=== PATIENT | female | born 1990 | race Caucasian/White ===

== ENCOUNTER 2017-03-05 14:36 | Inpatient (IN) | payer OTHER ==
[~2017-03-05] VITALS: Ht 152.4 cm; Wt 43.6 kg
[~2017-03-05 14:36] MED LIST: IBUP40TA PO; IBUP600T26 PO; NORCOTAB PO; [UNRECOGNIZED DRUG - CODE] PO
[2017-03-05] MEDS ORDERED: SERT-155 PO (14:43)
[2017-03-05] MEDS ORDERED: BUPR50TA PO (14:43)
[2017-03-05 15:14] LABS: MEAN CORPUSCULAR HEMOGLOBIN 27.9 pg (27.0-33.0); MEAN CORPUSCULAR HGB CONC 32.9 g/dl (32.0-36.5); MEAN CORPUSCULAR VOLUME 84.8 fl (80.0-96.0); RED CELL DISTRIBUTION WIDTH 13.8 % (11.5-14.5); WHITE BLOOD COUNT 5.9 10^3/uL (4.0-10.0)
[2017-03-05 15:29] LABS: CONTROL LINE HCG INT CTR LINE PRESENT
[2017-03-05 15:32] LABS: METHADONE URINE NEGATIVE (NEGATIVE)
[2017-03-05 15:43] LABS: ALBUMIN 4.3 GM/DL (3.2-5.2); ALBUMIN/GLOBULIN RATIO 1.19 (1.00-1.93); ALKALINE PHOSPHATASE 65 U/L (45-117); ALT/SGPT 20 U/L (12-78); ANION GAP 7 MEQ/L (8-16); AST/SGOT 13 U/L (15-37); BILIRUBIN,DIRECT 0.1 MG/DL (0.0-0.2); BILIRUBIN,TOTAL 0.4 MG/DL (0.2-1.0); BLOOD UREA NITROGEN 9 MG/DL (7-18); CARBON DIOXIDE LEVEL 28 MEQ/L (21-32); CHLORIDE LEVEL 103 MEQ/L (98-107); CREATININE FOR GFR 0.92 MG/DL (0.55-1.02); GLOMERULAR FILTRATION RATE > 60.0 (>60); GLUCOSE, FASTING 85 MG/DL (70-105); POTASSIUM SERUM 3.7 MEQ/L (3.5-5.1); SODIUM LEVEL 138 MEQ/L (136-145); TOTAL PROTEIN 7.9 GM/DL (6.4-8.2)
[2017-03-05] MEDS ORDERED: buPROPion 100 MG TAB PO ONE (20:45)
[2017-03-05] MEDS ORDERED: SERTRALINE HCL 50 MG TAB PO ONE (20:45)
[2017-03-05] MEDS ORDERED: SERT50TA PO (20:55)
[2017-03-05] MEDS ORDERED: BUPR10TASR PO (20:55)
[2017-03-05] MEDS ORDERED: ACETAMINOPHEN TAB 650MG DOSE (2X325MG) PO PRN (21:00)
[2017-03-05] MEDS ORDERED: MAALOX 30 ML SUSP *UDC PO PRN (21:00)
[2017-03-05] MEDS ORDERED: traZODone 50 MG TAB PO PRN (21:00)
[2017-03-05] MEDS: buPROPion (WELLBUTRIN SR) 100 MG SR TAB PO SCH (21:00)
[2017-03-05] MEDS ORDERED: MOM 30ML SUSPENSION UDC PO PRN (21:00)
[2017-03-05] MEDS: SERTRALINE HCL 50 MG TAB PO SCH (21:00)
[2017-03-05] MEDS ORDERED: buPROPion 100 MG TAB PO SCH (21:00)
[2017-03-05 22:09] VITALS: BP 119/83
[2017-03-06 06:37] VITALS: BP 113/57
[2017-03-06] MEDS ORDERED: buPROPion 100 MG TAB PO SCH (09:00)
[2017-03-06] MEDS ORDERED: MUPIROCIN 2% OINT 22 GM TUBE TOP PRN (09:00)
--- NOTE | 2017-03-06 09:03 | HPEPDOC ---
[facility] Medical History & Physical Date of Admission Mar 05, 2017 History and Physical PCP: Dr Hanson ATTENDING: Dr. Kaiser Mendoza HPI: 26yoF admitted to [facility] for unspecified depressive disorder, being medically examined today. No acute medical complaints today. Denies any fevers, chills, weakness, fatigue, REARDON, CP, SOB, cough, palpitations, abdominal pain, N/V /D or changes in bowel or bladder habits. PMHx: Anxiety Depression Bipolar disorder ADHD History of ovarian cyst PSHX: Breast augmentation SOCHX: Resides in: [facility] Marital Status: Single Kids: 1 Employment: Unemployed Tobacco use: Denies ETOH: 2 times per month for drinks Illicit Drugs: Denies IV Drug Use: Denies Tattoos done unprofessionally: 1 FAMHX: Mother: Alive, MS Father: Alive, history of substance use, alcohol use Siblings: 2 sisters, one brother Alive, well Children: Alive, well Unexpected deaths due to medical reasons: None. ROS: As noted in HPI, otherwise 11pt ROS of systems reviewed and remarkable only for LMP 02/16/17. PE: GEN: 26 yo F, appears stated age. Well-nourished, well developed. No acute distress. Alert and oriented x 3. Pleasant, interactive. HEENT: Normocephalic, atraumatic. Pupils are equal, round, and reactive to light. Extraocular movements are intact. No nystagmus appreciated. Sclera are nonicteric. Conjunctiva without injection. Nose midline. Nasal turbinates without bogginess. EACs both patent BL. TMs both visualized and hawkins with good cone of light, no bulging or erythema. No facial asymmetry. Moist mucous membranes. Dentition fair. Pharynx pink and moist, no cobblestoning. Neck supple , trachea midline. No lymphadenopathy or thyromegaly appreciated. CHEST: Regular rate and rhythm, +S1, +S2 LUNGS: Clear to auscultation bilaterally. No wheezes, rales, or rhonchi. Breathing appears symmetric and easy. Patient is speaking in full sentences. No accessory muscle use. ABD: Round, soft, non-tender, non-distended. +Bowel sounds throughout. No rebound or guarding. No costovertebral angle tenderness. EXT: Pulses 2+ bilaterally dorsalis pedis and radial. No lower extremity edema appreciated. SKIN: [place], dry, warm. Capillary refill <2sec. No rashes. There are a few superficial abrasions noted on the left hand which the patient states is from punching a wall a couple of days ago. Minimal erythema, no drainage NEURO: Alert and oriented x 3. Cranial nerves III-XII are intact. No focal deficits appreciated. EKG: pending. A&P: 26yoF admitted to [facility] for unspecified depressive disorder 1. Psych. Plan per Psychiatry. Obtain baseline EKG to assure the safety of psychiatric medications as they can prolong the QT interval. 2. Follow up with PCP on discharge. 3. History of tattoo done unprofessionally. Patient declines HIV/hepatitis screening stating she has been screened previously. 4. Superficial abrasion left hand. Keep area clean and dry. Apply bactroban BID as needed. 5. Staff member Steff present throughout exam. Vital Signs Vital Signs Date Time Temp Pulse Resp B/P (MAP) Pulse Ox O2 Delivery O2 Flow Rate FiO2 03/06/17 06:37 98.3 69 18 113/57 (75) 03/05/17 22:09 Room Air 03/05/17 20:49 97 Laboratory Data Labs 24H Laboratory Tests 2 03/05/17 15:03: Nucleated Red Blood Cells % (auto) 0.0, Anion Gap 7L, Glomerular Filtration Rate > 60.0, Calcium Level 9.0, Aspartate Amino Transf (AST/SGOT) 13L, Alanine Aminotransferase (ALT/SGPT) 20, Alkaline Phosphatase 65, Total Bilirubin 0.4, Direct Bilirubin 0.1, Total Protein 7.9, Albumin 4.3, Albumin/Globulin Ratio 1.19, Thyroid Stimulating Hormone (TSH) 2.360, Human Chorionic Gonadotropin, Qual NEGATIVE, Salicylates Level < 1.7L, Urine Amphetamines Screen NEGATIVE, Urine Benzodiazepines Screen NEGATIVE, Urine Opiates Screen NEGATIVE, Urine Methadone Screen NEGATIVE, Acetaminophen Level < 2.0L, Urine Barbiturates Screen NEGATIVE, Urine Phencyclidine Screen NEGATIVE, Urine Cocaine Metabolite Screen NEGATIVE, Urine Cannabinoids Screen NEGATIVE, Ethyl Alcohol Level < 0.003 CBC/BMP Laboratory Tests 03/05/17 15:03 Red Blood Count 4.34, Mean Corpuscular Volume 84.8, Mean Corpuscular Hemoglobin 27.9, Mean Corpuscular Hemoglobin Concent 32.9, Red Cell Distribution Width 13.8 Home Medications Scheduled Bupropion Hcl (Wellbutrin Sr) 100 Mg Tabsr, 100 MG PO BID Sertraline Hcl (Sertraline HCl) 50 Mg Tab, 150 MG PO QHS Allergies Coded Allergies: Latex (Verified Allergy, Severe, HIVES, ITCHING, 08/21/12) Petrona Romero Mar 06, 2017 09:03
[2017-03-06] MEDS: buPROPion (WELLBUTRIN SR) 100 MG SR TAB PO SCH ×2 (09:42→21:07)
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
[2017-03-06 18:00] VITALS: BP 109/71
[2017-03-06] MEDS: SERTRALINE HCL 50 MG TAB PO SCH (21:07)
--- NOTE | 2017-03-06 22:49 | ECGEPIP ---
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 No prior ECG available for comparison at the time of interpretation. Electronically Signed On 03-06-2017 22:49:25 EDT by Kaiser Clemente
[2017-03-07 06:51] VITALS: BP 96/54
[2017-03-07] MEDS: buPROPion (WELLBUTRIN SR) 100 MG SR TAB PO SCH ×2 (09:56→21:09)
[2017-03-07 18:32] VITALS: BP 103/65
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
[2017-03-07] MEDS ORDERED: QUEtiapine FUMARATE 25 MG TAB PO SCH (21:00)
[2017-03-07] MEDS: QUEtiapine FUMARATE 50 MG TAB PO SCH (21:09)
[2017-03-07] MEDS: SERTRALINE HCL 50 MG TAB PO SCH (21:09)
[2017-03-08 06:27] VITALS: BP 97/54
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
[2017-03-08 18:22] VITALS: BP 108/64
[2017-03-08] MEDS: QUEtiapine FUMARATE 50 MG TAB PO SCH (22:49)
[2017-03-08] MEDS: SERTRALINE HCL 50 MG TAB PO SCH (22:49)
[2017-03-09 06:00] VITALS: BP 103/60
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
[2017-03-09 18:00] VITALS: BP 114/75
[2017-03-09] MEDS: QUEtiapine FUMARATE 50 MG TAB PO SCH (21:37)
[2017-03-09] MEDS: SERTRALINE HCL 50 MG TAB PO SCH (21:38)
[2017-03-10 07:00] VITALS: BP 127/76
[2017-03-10] MEDS ORDERED: ARIPiprazole MONOHYDRATE 400 MG INJ (ABILIFY)(J0401) IM SCH (09:00)
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
[2017-03-10 18:00] VITALS: BP 111/66
[2017-03-10] MEDS: SERTRALINE HCL 50 MG TAB PO SCH (21:45)
[2017-03-10] MEDS: QUEtiapine FUMARATE 50 MG TAB PO SCH (23:08)
[2017-03-11 06:42] VITALS: BP 132/68
[2017-03-11 18:14] VITALS: BP 111/55
[2017-03-11] MEDS: SERTRALINE HCL 50 MG TAB PO SCH (20:12)
[2017-03-11] MEDS: QUEtiapine FUMARATE 50 MG TAB PO SCH (21:06)
[2017-03-12 06:34] VITALS: BP 111/62
[2017-03-12 18:00] VITALS: BP 124/77
[2017-03-12] MEDS: QUEtiapine FUMARATE 50 MG TAB PO SCH (20:43)
[2017-03-12] MEDS: SERTRALINE HCL 50 MG TAB PO SCH (20:43)
[2017-03-13 06:37] VITALS: BP 108/64
[2017-03-13] MEDS ORDERED: QUET5TAB PO (09:36)
[2017-03-13] MEDS ORDERED: MUPI2OI TOP (09:36)
[2017-03-13] MEDS ORDERED: SERT50TA PO (09:36)
[2017-03-13] MEDS ORDERED: ABIL400I IM (09:36)
[2017-03-13] MEDS ORDERED: ARIP5TA PO (09:36)
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
[2017-03-14] MEDS ORDERED: ABIL400I IM (14:51)
== END 2017-03-13 11:52 | disposition home or self-care (01) | DRG 753 ==
LOC: M ED 14:36 → M ED INP 20:46 → M PSY 22:03
PROVIDERS: ADMIT Psychiatry & Neurology Psychiatry; ATTEND Psychiatry & Neurology Psychiatry
DX: F31.60 Bipolar disorder, current episode mixed, unspecified (principal); F60.3 Borderline personality disorder; F43.10 Post-traumatic stress disorder, unspecified; Z79.899 Other long term (current) drug therapy; Z91.040 Latex allergy status; Z98.82 Breast implant status

== ENCOUNTER → 2018-07-19 | Outpatient (REF) | payer BC ==
[~2018-07-19] MED LIST changes: +ABIL400I IM; +ARIP5TA PO; +BUPR10TASR PO; +BUPR50TA PO; +MUPI2OI TOP; +QUET5TAB PO; +SERT-155 PO; +SERT50TA PO
== END ==
LOC: M SFHCLERA 10:03
PROVIDERS: ATTEND Physician Assistant
DX: J02.9 Acute pharyngitis, unspecified (principal)

== ENCOUNTER → 2020-03-26 | Outpatient (CLI) | payer BC ==
[~2020-03-26] MED LIST changes: +ARIP1TAB6 PO; -ARIP5TA PO; +BUPR-69 PO; -BUPR50TA PO; +IBUP-1114 PO; -IBUP40TA PO; +SERT-141 PO; -SERT-155 PO; -SERT50TA PO; +SERT50TA29 PO
== END ==
LOC: M LABSMTC 14:05
PROVIDERS: ATTEND Family Medicine
DX: Z20.828 Contact with and (suspected) exposure to other viral communicable diseases (principal)
CPT/HCPCS: C9803; U0003

== ENCOUNTER → 2020-05-06 | Outpatient (REF) | payer BC ==
[2020-05-06 18:06] LABS: HCG, SERUM QUALITATIVE NEGATIVE (NEGATIVE)
== END ==
LOC: M LAB REF 16:29
PROVIDERS: ATTEND Physician Assistant
DX: Z32.00 Encounter for pregnancy test, result unknown (principal)